=== PATIENT | male | born 1995 | race Caucasian/White ===

== ENCOUNTER 2019-01-17 17:50 | Emergency (ER) | payer OTHER ==
--- NOTE | 2019-01-17 18:04 | ER Report ---
History and Physical Time Seen By MD: 17:53 Hx. of Stated Complaint: PATIENT WAS CLIMBING OVER [employer] FENCE. 2 LACERATIONS TO RIGHT LEG. BLEEDING CONTROLLED. PATIENT REPORTS LAST TETNUS WITHIN 6 MONTHS HPI/ROS CHIEF COMPLAINT: Laceration HISTORY OF PRESENT ILLNESS: 23-year-old male patient presents to emergency room with complaint of laceration to the right leg. Patient states he was out for a run this morning about 11:00. He states that he had a run around a reservoir. He states that he jumped over a [employer] fence surgeon have run back around the re servoir. He states he did that he cut the right leg. Patient states his tetanus shot is current within the last year. He denies any pertinent medical or surgical history. Home Meds Active Scripts Cephalexin 500 Mg Tab (KEFLEX 500 MG TAB) 500 Mg Tablet, 500 MG PO Q6H, #28 TAB Prov:RONAL MAC [employer] 01/17/19 Past Medical/Surgical History Patient has a pertinent medical or surgical history. Reviewed Nurses Notes: Yes Hx Alcohol Use: No Constitutional Vital Sign - Last 24 Hours 01/17/19 01/17/19 17:54 19:06 Temp 98.2 Pulse 70 85 Resp 16 16 B/P (MAP) 138/77 132/82 (99) Pulse Ox 92 92 O2 Delivery Room Air Room Air Physical Exam General appearance: Alert no distress. Respiratory: Chest is non tender, lungs are clear to auscultation. Cardiac: Regular rate and rhythm. Skin: Patient has a 3 cm laceration to the lateral aspect of the right lower leg, his a one similar laceration to the medial aspect of the right lower leg. DIFFERENTIAL DIAGNOSIS: After history and physical exam differential diagnosis was considered for laceration. Medical Decision Making ED Course/Re-evaluation ED Course Patient admitted to examine, history and physical were obtained. Differential diagnoses were considered. On examination lungs are clear, heart is regular. Patient does have a 1 cm and 3 cm laceration of the right lower leg. Wounds were anesthetized, cleaned and repaired described below. Patient tolerated procedure well. We will go ahead and discharge patient home at this time. He is to monitor for signs of infection. We will place him on antibiotics, and spends hours since the injury. He is return to the emergency room with any concerns. He states Tylenol ibuprofen as needed for pain. Patient verbalized understanding and agreement time. Procedure: Laceration repair. Verbal consent was obtained from the patient. The 1 cm and 3 cm laceration on the right lower leg were anesthetized in the usual fashion. The wound was scrubbed, draped and explored to its base with a gloved finger. There were no deep structures involved. No tendon injury was identified. The wound was repaired with 3 and 6 simple interrupted sutures using 5-0 Prolene material. The wound repair was simple. The procedure was performed by myself. Decision to Disposition Date: Jan 17, 2019 Decision to Disposition Time: 18:51 Depart Departure Latest Vital Signs Vital Signs Date Time Temp Pulse Resp B/P (MAP) Pulse Ox O2 Delivery O2 Flow Rate FiO2 01/17/19 19:06 85 16 132/82 (99) 92 Room Air 01/17/19 17:54 98.2 Impression: Primary Impression: Leg laceration Condition: Improved Disposition: HOME OR SELF-CARE New Scripts Cephalexin 500 Mg Tab (KEFLEX 500 MG TAB) 500 Mg Tablet 500 MG PO Q6H, #28 TAB Prov: RONAL MAC 01/17/19 Patient Instructions: Laceration (ED) Additional Instructions: Keep wound dry for 48 hours. Follow up with your primary care provider in the next 7-10 days to have sutures removed. Monitor for signs of infection; redness, swelling, heat, discharge, increasing pain or red streaking. Take Tylenol or Ibuprofen as needed for pain. Return to the ER with any concerns. You may change dressing as needed. Problem Qualifiers Primary Impression: Leg laceration Encounter type: initial encounter Laterality: right Qualified Codes: S81.811A - Laceration without foreign body, right lower leg, initial encounter RONAL MAC Jan 17, 2019 18:04
[2019-01-17] MEDS ORDERED: CEPH500T7 PO (18:55)
[2019-01-17 19:06] VITALS: BP 132/82
== END 2019-01-17 19:08 | disposition home or self-care (01) ==
LOC: ER 18:16
DX: S81.811A Laceration without foreign body, right lower leg, initial encounter (principal); W26.8XXA Contact with other sharp object(s), not elsewhere classified, initial encounter
CPT/HCPCS: 99282